=== PATIENT | male | born 1995 | race Caucasian/White ===

== ENCOUNTER 2018-03-12 22:27 | Emergency (ER) | payer BC ==
[2018-03-12 22:36] VITALS: BP 126/82; PULSE 86; TEMP 98.7; BMI 27.3
[2018-03-12] MEDS ORDERED: CEPHALEXIN MONOHYDRATE 500 MG CAPSULE (UD) PO ONE (22:47)
[2018-03-12] MEDS ORDERED: CEPHALEXIN MONOHYDRATE 500 MG CAPSULE (UD) ONE (22:49)
--- NOTE | 2018-03-12 22:53 | PDOC ---
History of Present Illness - General Chief Complaint: Pain, Acute Stated Complaint: INFECTED LEFT THUMB X 5 DAYS Time Seen by Provider: 03/12/18 22:37 History Source: Patient Exam Limitations: No Limitations - History of Present Illness Initial Comments: 03/12/18 22:49 22 YOM with h/o allergies and FARRIS presenting with left thumb pain and ?swelling x 5 day. He states he was working on refrigerator for work; wearing gloves at time but may have caused microtrauma with wear and tear. No discharge, redness, fevers or chills. +ambidextrous. denies nail biting. +smoker and cannibis use. Past History - Past Medical History Allergies/Adverse Reactions: Allergies Allergy/AdvReac Type Severity Reaction Status Date / Time No Known Allergies Allergy Verified 03/12/18 22:31 Home Medications: Ambulatory Orders Cephalexin Monohydrate [Keflex -] 500 mg PO Q8H 7 Days #21 capsule 03/12/18 COPD: No Other medical history: DENIES - Surgical History Comments:: 03/12/18 22:48 deviated septum - Immunization History Immunization Up to Date: Yes - Suicide/Smoking/Psychosocial Hx Smoking History: Current every day smoker Have you smoked in the past 12 months: Yes Number of Cigarettes Smoked Daily: 20 Information on smoking cessation initiated: Yes 'Breaking Loose' booklet given: 01/20/16 Hx Alcohol Use: No Drug/Substance Use Hx: Yes Substance Use Type: Marijuana Review of Systems - Review of Systems Able to Perform ROS?: Yes Comments:: 03/12/18 22:49 Constitutional: no fevers or chills. HEAD, EYES, EARS, NOSE AND THROAT: +forehead injury. No blurry vision or hearing changes MUSCULOSKELETAL: +thumb pain. No joint or muscle swelling. No neck or back pain. SKIN: no redness or skin changes, no discharge. NEUROLOGIC: No weakness, numbness or tingling. Allergic: no allergies All other systems reviewed and negative, or as documented in HPI. 03/12/18 22:53 *Physical Exam - Vital Signs Last Vital Signs Temp Pulse Resp BP Pulse Ox 98.7 F 86 16 126/82 99 03/12/18 22:32 03/12/18 22:32 03/12/18 22:32 03/12/18 22:32 03/12/18 22:32 - Physical Exam Comments: 03/12/18 22:51 General: well appearing, NAD. Focused MSK /neuro/skin Exam notable for soft compartments, 2+ radialis pulses. Cap refill <2 sec. Proximal and distal strength 5/5, diabetes education coordinator strength 5/5 - equal and symmetric. IP joint tendon intact 5/5 against resistance. Sensation grossly intact to light touch in median/radial/ulnar distribution. nail bed intact, no firmness over left distal thumb pad or focal fluid collection/fluctuance/ swelling/color changes or wounds. no visible wounds or puncture sites Skin color normal color, warm and well perfused. faint superficial nodules over left thumb pad, nontender, nonerythematous. no swelling. 03/12/18 22:54 Medical Decision Making - Medical Decision Making 03/12/18 22:53 22 YOM with h/o left thumb pain x 5 days. vital signs wnl., no fever DDx. felon, paronychia, cellulitis, FB no utility of XR, doubt infection such as osteomyelitis or FB. no skin changes to suggest severe infection, no palp findings to suggest nailbed infection or felon. NVI, msk exam wnl, with intact tendon and radial nerve sensation intact/no deficits. will Rx. keflex TID x 7 days for possible thumb infection in setting of wear and tear and working with fridge device. di I discussed the physical exam findings, ancillary test results and final diagnoses with the patient. I answered all of the patient's questions. The patient was satisfied with the care received and felt comfortable with the discharge plan and treatment plan. The patient will return to the Emergency Department with any new, persistent or worsening symptoms. 03/12/18 22:54 *DC/Admit/Observation/Transfer Diagnosis at time of Disposition: Pain of left thumb - Discharge Dispostion Disposition: HOME Condition at time of disposition: Stable Decision to Admit order: No - Prescriptions Prescriptions: Cephalexin Monohydrate [Keflex -] 500 mg PO Q8H 7 Days #21 capsule - Referrals Referrals: Richard Young MD [Primary Care Provider] - - Patient Instructions Printed Discharge Instructions: DI for Finger Sprain Additional Instructions: take keflex for possible infection with three times a day for one week warm soaks to your finger twice to three times a day monitor for signs of infection - fever, pain, swelling, redness, discharge or further progression. follow with your doctor this week for reevaluation wear gloves and protective gear, keep hands and finger clean and dry. - Post Discharge Activity
== END 2018-03-12 23:04 | disposition home or self-care (01) ==
LOC: FER 22:27
DX: M79.645 Pain in left finger(s) (principal)
CPT/HCPCS: 99281-25

== ENCOUNTER 2018-07-28 13:38 | Emergency (ER) | payer BC ==
--- NOTE | 2018-07-28 13:43 | PDOC ---
History of Present Illness - General Chief Complaint: Lightheaded Stated Complaint: DIZZY, ANXIOUS Time Seen by Provider: 07/28/18 13:42 History Source: Patient Exam Limitations: No Limitations - History of Present Illness Initial Comments: 07/28/18 13:43 22 year old male with PMH chronic headaches, chronic neck pain, anxiety, depression presented to ED for chest pain since 0900 today. Pt stated his chest pain is intermittent, described as "butterflies", nonradiating, no alleviating or aggravating factors. He admitted to palpitations and shortness of breath. He denied cough, fever, chills, nausea, vomiting, diarrhea, abdominal pain. He takes Clonazepam 0.5 mg BID for his anxiety, but ran out a few days ago and has not been able to see his PCP because he recently started a new job. Pt admitted to everyday ETOH use - 1 beer, last drank champagne yesterday Pt admitted to everyday marijuana use - 1 joint a day, last had 1 joint today Past History - Past Medical History Allergies/Adverse Reactions: Allergies Allergy/AdvReac Type Severity Reaction Status Date / Time No Known Allergies Allergy Verified 07/28/18 13:39 Home Medications: Ambulatory Orders Clonazepam 0.5 mg PO BID #4 tab.rapdis MDD 1 mg 07/28/18 Clonazepam 0.5 mg PO BID PRN 07/28/18 Escitalopram Oxalate [Lexapro -] 10 mg PO DAILY 07/28/18 Fluoxetine HCl [Prozac] 20 mg PO DAILY 07/28/18 COPD: No Psychiatric Problems: Yes (ANXIETY, DEPRESSION) - Immunization History Immunization Up to Date: Yes - Suicide/Smoking/Psychosocial Hx Smoking History: Current every day smoker Have you smoked in the past 12 months: Yes Number of Cigarettes Smoked Daily: 20 'Breaking Loose' booklet given: 01/20/16 Hx Alcohol Use: No Drug/Substance Use Hx: Yes Substance Use Type: Marijuana Review of Systems - Review of Systems Able to Perform ROS?: Yes Comments:: 07/28/18 13:44 General: denied fever, chills, night sweats, generalized weakness. HEENT: denied sore throat, rhinorrhea, ear pain. Heart: admitted to chest pain, palpitations. Denied syncope, lower extremity swelling, diaphoresis. Respiratory: admitted to shortness of breath. denied cough, sputum production, hemoptysis. Abdomen: denied abdominal pain, nausea, vomiting, diarrhea, constipation, blood in stool. : denied dysuria, increased urinary frequency, hematuria, urinary incontinence , flank pain. Back: denied back pain. Musculoskeletal: denied joint pain, muscle pain, joint swelling. Neurological: denied headache, dizziness, numbness, tingling, weakness. Skin: denied rash, laceration, abrasion. *Physical Exam - Physical Exam Comments: 07/28/18 13:44 Constitutional: Well-nourished, Well-developed, appearing stated age. HEENT: head is normocephalic, atraumatic. EOMI. PERRLA. sunken eyes. Neck: supple. Full ROM. Heart: tachycardic. regular rhythm. no murmurs, rubs or gallops. Lungs: clear to auscultation bilaterally. no crackles, rhonchi or wheezing. no stridor. Abdomen: soft, nontender. normal bowel sounds. no rebound, guarding, masses. Extremities: 2+ radial pulses bilaterally. 2+ DSP pulses bilaterally. No lower extremity edema. Neurological: CN 2-12 grossly intact. Moves all four extremities. Psych: awake, alert, oriented x3. Follows commands. Answers questions appropriately. Medical Decision Making - Medical Decision Making 07/28/18 14:11 22 year old male with above PMH presented to ED for chest pain/shortness of breath/palpitations consistent with his prior anxiety episodes. He stated he has been out of his Clonazepam 0.5 mg BID for a few days. He admitted to everyday marijuana use, last smoked 1 joint today. Initial Vital Signs Temp Pulse Resp BP Pulse Ox 97.8 F 97 H 18 142/88 98 07/28/18 13:38 07/28/18 13:38 07/28/18 13:38 07/28/18 13:38 07/28/18 13:38 Afebrile. Borderline tachycardia. No tachypnea. Mild hypertension. No hypoxia on room air. Clonazepam 0.5 mg ordered. EKG performed at 1355: rate 112, regular rhythm, normal axis, normal intervals, nonspecific ST changes. 07/28/18 15:14 Pt reported improvement in symptoms with clonazepam. Pt requesting UA. Pt no stated that he has lower abdominal pain. Urine Test Results Urine Color Yellow 07/28/18 14:58 Urine Appearance Clear 07/28/18 14:58 Urine pH 6.5 (4.5-8) 07/28/18 14:58 Ur Specific [place] >= 1.030 (1.010-1.035) 07/28/18 14:58 Urine Protein 1+ (NEGATIVE) H 07/28/18 14:58 Urine Glucose (UA) Negative (NEGATIVE) 07/28/18 14:58 Urine Ketones Trace (NEGATIVE) 07/28/18 14:58 Urine Blood Negative (NEGATIVE) 07/28/18 14:58 Urine Nitrite Negative (NEGATIVE) 07/28/18 14:58 Urine Bilirubin 1+ (NEGATIVE) H 07/28/18 14:58 Ur Leukocyte Esterase Negative (NEGATIVE) 07/28/18 14:58 No evidence of urinary tract infection. Pt to be discharged with 4 doses of Clonazepam 0.5 mg. Pt informed he will need to follow up with his PCP for more clonazepam. Pain unlikely to be cardiac in origin, completely resolved with benzo administration. Pt to be discharged. *DC/Admit/Observation/Transfer Diagnosis at time of Disposition: Chest pain, Anxiety - Discharge Dispostion Disposition: HOME Condition at time of disposition: Improved Decision to Admit order: No - Prescriptions Prescriptions: Clonazepam 0.5 mg PO BID #4 tab.rapdis MDD 1 mg - Referrals - Patient Instructions Printed Discharge Instructions: DI for Anxiety -- Adult, DI for Chest Pain Additional Instructions: Your urine analysis was normal, there is no urinary tract infection. I have sent a two day prescription for Clonazepam to your pharmacy, take as advised on label. Follow up with your primary care doctor tuesday. Return to the Emergency Department for chest pain, shortness of breath, palpitations, lightheadedness like you may pass out, dizziness like the room is spinning, or any other new, worsening or concerning symptoms. - Post Discharge Activity
[2018-07-28 13:51] VITALS: BP 142/88; PULSE 97; TEMP 97.8; BMI 28.1
[2018-07-28] MEDS ORDERED: clonazePAM 0.5 MG TABLET PO ONE (14:11)
[2018-07-28] MEDS ORDERED: clonazePAM 0.5 MG TABLET ONE (14:14)
--- NOTE | 2018-07-28 14:55 | PDOC ---
Attending Attestation - Resident Resident Name: Ida Kwan - ED Attending Attestation I have performed the following: I have examined & evaluated the patient, The case was reviewed & discussed with the resident, I agree w/resident's findings & plan - HPI HPI: 07/28/18 14:53 22 year old male with PMH chronic headaches, chronic neck pain, anxiety, depression presented to ED for chest pain since 0900 today, a/w palpitations, SOB and dizziness, and feeling "butterflies" - which have since been resolving.. He ran out of his clonazepam earlier this week due to his job, usually sees Dr Jorge L Saavedra for prescription. he did smoke cannibis earlier today. 07/28/18 15:06 - Physicial Exam PE: 07/28/18 14:55 NAD, well appearing, PERRL, EOMI, MMM, nl conjunctiva, anicteric; neck supple. lungs clear, RRR, abdomen soft nontender. ELLIOTT x4, no focal neuro deficits. No peripheral edema. normal color for ethnicity, WWP. - Medical Decision Making 07/28/18 14:56 see HPI for details Vitals normal EKG with sinus tachy initially, otherwise nonischemic requesting UA to check for infection, which is neg for infection given dose of his clonazepam. most likely cannibis induced (smoked prior to coming to ED) anxiety sx and missed medications x several days as exacerbating factors. comfortable, NAD, ambulatory in department. rx for clonazepam BID dosing x 2 days dose, and f/u his regular PMD/Dr. Saavedra psychiatrist for full duration of medication. DC in stable condition. 07/28/18 15:57 07/28/18 15:58 Heart Score/ECG Review - ECG Impressions Non-specific ST Elevation: No Ischemic Changes: No Tachycardia: Sinus
[2018-07-28 15:07] LABS: PH,URINE 6.5 (4.5-8); URINE APPEARANCE Clear; URINE BILIRUBIN 1+ (NEGATIVE); URINE COLOR Yellow; URINE GLUCOSE (UA) Negative (NEGATIVE); URINE KETONE Trace (NEGATIVE); URINE LEUK ESTERASE Negative (NEGATIVE); URINE NITRITE Negative (NEGATIVE); URINE PROTEIN 1+ (NEGATIVE); URINE UROBILINOGEN 0.2 (0.2-1.0)
[2018-07-28 15:24] LABS: URINE RBC 0-2 /hpf (0-3); URINE WBC 0-2 (0-2)
[2018-07-28 15:25] LABS: URINE MUCUS 3+
--- NOTE | 2018-07-29 21:15 | EKG ---
Test Reason : Blood Pressure : / mmHG Vent. Rate : 112 BPM Atrial Rate : 112 BPM P-R Int : 144 ms QRS Dur : 084 ms QT Int : 316 ms P-R-T Axes : 071 079 039 degrees QTc Int : 431 ms SINUS TACHYCARDIA OTHERWISE NORMAL ECG NO PREVIOUS ECGS AVAILABLE Confirmed by NERI EATON, ERICKSON ([id number]) on 07/29/2018 9:14:45 PM Referred By: SERGE PEREZ Confirmed By:ERICKSON HE MD
== END 2018-07-28 15:50 | disposition home or self-care (01) ==
LOC: FER 13:38
DX: R07.9 Chest pain, unspecified (principal); F41.9 Anxiety disorder, unspecified
CPT/HCPCS: 81003; 81015; 87086; 93005; 99284-25

== ENCOUNTER 2025-02-17 22:13 | Emergency (ER) | payer BC ==
[2025-02-17 22:23] VITALS: BP 140/81; PULSE 100; RESP 17; TEMP 97; BMI 35.2
[2025-02-17] MEDS ORDERED: DIPHTH,PERTUSS(ACELL),TET 0.5 ML DISP.SYRIN IM ONE (22:35)
[2025-02-17] MEDS: DIPHTH,PERTUSS(ACELL),TET 0.5 ML DISP.SYRIN IM ONE (22:36)
== END 2025-02-17 22:39 | disposition home or self-care (01) ==
LOC: FER 22:13
PROC: 3E0234Z Introduction of Serum, Toxoid and Vaccine into Muscle, Percutaneous Approach (ICD-10-PCS; principal; 2025-02-17)
DX: S99.922A Unspecified injury of left foot, initial encounter (principal); Z23 Encounter for immunization; W46.0XXA Contact with hypodermic needle, initial encounter; Y93.01 Activity, walking, marching and hiking; Y92.832 Beach as the place of occurrence of the external cause
CPT/HCPCS: 90715; 99283-25